=== PATIENT | male | born 1990 | race Caucasian/White ===

== ENCOUNTER 2016-08-23 11:47 | Emergency (ER) | payer OTHER ==
[~2016-08-23] VITALS: Ht 185.4 cm; Wt 104.3 kg
[~2016-08-23 11:47] MED LIST: no home meds
[2016-08-23] MEDS ORDERED: NAPROXEN 250 MG TAB PO ONE (13:15)
[2016-08-23] MEDS ORDERED: PENI50TA GT (13:29)
[2016-08-23 14:18] VITALS: BP 152/86
== END 2016-08-23 14:22 | disposition home or self-care (01) ==
LOC: M ED 12:59
DX: J02.0 Streptococcal pharyngitis (principal); F17.200 Nicotine dependence, unspecified, uncomplicated

== ENCOUNTER 2022-01-03 01:34 | Emergency (ER) | payer SELFPAY ==
[~2022-01-03] VITALS: Ht 188 cm; Wt 106.9 kg
[~2022-01-03 01:34] MED LIST changes: +PENI500T GT
[2022-01-03 01:35] VITALS: BP 150/96
== END 2022-01-03 02:30 | disposition left against medical advice (07) ==
LOC: M ED 01:34
DX: Z53.21 Procedure and treatment not carried out due to patient leaving prior to being seen by health care provider (principal)